=== PATIENT | male | born 1995 | race Caucasian/White ===

== ENCOUNTER 2016-07-12 22:22 | Emergency (ER) | payer BC ==
[~2016-07-12] VITALS: Ht 175.3 cm; Wt 72.6 kg
[2016-07-12 22:22] VITALS: BP_SYST 129
--- NOTE | 2016-07-12 22:22 | NUR ---
Patient to ER bed 8 to gown for evaluation. Side rails up. Report given to SHRAVAN GAINES.
--- NOTE | 2016-07-12 22:22 | NUR ---
Vikki dawson in ED - 07/12/16 at 2329 by TANISHA [facility]. Report given to HANS GAINES.
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
--- NOTE | 2016-07-12 22:55 | NUR ---
ER at bedside examining patient.
--- NOTE | 2016-07-12 23:15 | NUR ---
Patient transported to radiology via , accompanied by [employer].
[2016-07-13] MEDS ORDERED: IBUPROFEN 800 MG TABLET PO ONE (00:30)
[2016-07-13 00:39] VITALS: BP_SYST 126
--- NOTE | 2016-07-13 00:39 | NUR ---
Patient given written and verbal discharge instructions and verbalizes understanding. ER MD discussed with patient the results and treatment provided. Patient in stable condition. ID arm band removed. Rx of ibuprofen given. Patient educated on pain management and to follow up with PMD. Pain Scale 0/10.Opportunity for questions provided and answered.
== END 2016-07-13 00:39 | disposition home or self-care (01) ==
LOC: SED 22:22
DX: M54.2 Cervicalgia (principal); M54.9 Dorsalgia, unspecified; V89.2XXA Person injured in unspecified motor-vehicle accident, traffic, initial encounter; W22.19XA Striking against or struck by other automobile airbag, initial encounter; Y93.89 Activity, other specified; Y92.89 Other specified places as the place of occurrence of the external cause; Y99.8 Other external cause status
CPT/HCPCS: 72050-TC; 72072-TC; 72080-TC; 99284